=== PATIENT | male | born 1940 | race Caucasian/White ===

== ENCOUNTER 2017-10-21 12:25 | Inpatient (IN) | payer MEDICARE ==
[~2017-10-21] VITALS: Ht 177.8 cm; Wt 95.0 kg
[2017-10-21] VITALS (7 sets, daily range): BP systolic 126–156; BP diastolic 62–87; PULSE 58–106; RESP 16–20; TEMP 97.8–98.2; O2SAT 96–100
[2017-10-21] MEDS ORDERED: SIMV20TA PO (12:36)
[2017-10-21] MEDS ORDERED: METO1TAB43 PO (12:36)
[2017-10-21] MEDS ORDERED: TRAM50TA PO (12:36)
[2017-10-21] MEDS ORDERED: ASPI-183 PO (12:36)
[2017-10-21] MEDS ORDERED: SODIUM CHLORIDE 0.9% FLUSH 10 ML FLUSH IVF PRN (12:45)
--- NOTE | 2017-10-21 13:16 | RADRPT ---
EXAM DATE/TIME: 10/21/2017 12:59 [place] COMPARISON: No previous studies available for comparison. INDICATIONS : Chest pain for 3 days MEDICAL HISTORY : Cardiovascular disease. SURGICAL HISTORY : Pacemaker. ENCOUNTER: Initial ACUITY: 3 days PAIN SCORE: 10/10 LOCATION: Bilateral chest FINDINGS: A single view of the chest demonstrates the lungs to be symmetrically aerated without evidence of mas s, infiltrate or effusion. Dual-lead AICD device in place with battery pack obscuring a portion of th e left hemithorax. The cardiac silhouette is mildly enlarged. Osseous structures are intact. CONCLUSION: 1. Compensated cardiomegaly. 2. No acute cardiopulmonary disease. Keanu Song MD on October 21, 2017 at 13:13 Board Certified Radiologist. This report was verified electronically.
[2017-10-21 13:19] LABS: AUTOMATED NEUTROPHIL # 5.9 TH/MM3 (1.8-7.7); BASOPHIL % 0.2 % (0.0-2.0); EOSINOPHIL # 0.2 TH/MM3 (0-0.4); HEMATOCRIT 39.5 % (39.0-51.0); HEMOGLOBIN 13.9 GM/DL (13.0-17.0); LYMPH % 25.9 % (9.0-44.0); LYMPHOCYTE # 2.4 TH/MM3 (1.0-4.8); MEAN CELL VOLUME 90.3 FL (80.0-100.0); MEAN CORPUSCULAR HEMOGLOBIN 31.9 PG (27.0-34.0); MEAN CORPUSCULAR HGB CONC 35.3 % (32.0-36.0); MEAN PLATELET VOLUME 6.9 FL (7.0-11.0); MONO % 7.7 % (0.0-8.0); MONOCYTE # 0.7 TH/MM3 (0-0.9); NEUT % 64.2 % (16.0-70.0); PLATELET COUNT 195 TH/MM3 (150-450); RED BLOOD COUNT 4.37 MIL/MM3 (4.50-5.90); RED CELL DISTRIBUTION WIDTH 13.8 % (11.6-17.2); WHITE BLOOD COUNT 9.2 TH/MM3 (4.0-11.0)
[2017-10-21 13:35] LABS: BICARBONATE 28.9 MEQ/L (21.0-32.0); BLOOD UREA NITROGEN 20 MG/DL (7-18); CHLORIDE 106 MEQ/L (98-107); CREATININE 1.69 MG/DL (0.60-1.30); GLOMERULAR FILTRATION RATE 40 ML/MIN (>89); GLUCOSE,RANDOM 116 MG/DL (74-106); MAGNESIUM 2.4 MG/DL (1.5-2.5); SODIUM (NA) 141 MEQ/L (136-145)
[2017-10-21 13:38] LABS: TROPONIN I LESS THAN 0.02 NG/ML (0.02-0.05)
--- NOTE | 2017-10-21 14:02 | PD ---
HPI Chief Complaint: Cardiac Complaint Time Seen by Provider: 12:29 Travel History International Travel<30 days: No Contact w/Intl Traveler<30days: No Traveled to known affect area: No History of Present Illness HPI The patient is 77 years old and arrives by private auto due to arrhythmia. The patient additionally reports retrosternal chest pain of at least moderate severity associated with shortness of breath. He has a defibrillator. He reports a similar episode occurred a few weeks prior and after 5 hours a defibrillator started working. He is a [employer] device. He denies fever chills nausea vomiting diaphoresis and dizziness. He reports feeling his normal self lately with no new or different medication or illness. PFSH Past Medical History Atrial Fibrillation: Yes Cardiac Catheterization: Yes Cardiovascular Problems: Yes Past Surgical History AICD: Yes Cholecystectomy: Yes Coronary Stent: Yes Pacemaker: Yes Social History Alcohol Use: No Tobacco Use: No Substance Use: No Allergies-Medications (Allergen,Severity, Reaction): Coded Allergies: No Known Allergies (Unverified , 10/21/17) Reported Meds & Prescriptions Reported Meds & Active Scripts Active Reported Aspirin 325 Mg Tab 325 Mg PO Q6H Simvastatin 20 Mg Tab 20 Mg PO DAILY Tramadol (Tramadol HCl) 50 Mg Tab 50 Mg PO Q6H PRN Metoprolol Succinate ER 24 HR (Metoprolol Succinate) 100 Mg Tab 100 Mg PO DAILY Review of Systems Except as stated in HPI: all other systems reviewed are Neg General / Constitutional: No: Fever Physical Exam Narrative GENERAL: 77-year-old male mild distress Vital Signs Date Time Temp Pulse Resp B/P (MAP) Pulse Ox O2 Delivery O2 Flow Rate FiO2 10/21/17 13:43 58 16 138/87 (104) 99 Room Air 2.00 10/21/17 12:45 16 100 Room Air 10/21/17 12:45 100 Room Air 10/21/17 12:36 93 18 100 Nasal Cannula 2.00 10/21/17 12:31 95 20 98 Room Air 10/21/17 12:29 98.2 106 16 156/82 (106) 98 SKIN: Warm and dry. HEAD: Atraumatic. Normocephalic. EYES: Pupils equal and round. No scleral icterus. No injection or drainage. ENT: No nasal bleeding or discharge. Mucous membranes pink and moist. NECK: Trachea midline. No JVD. CARDIOVASCULAR: Irregular rhythm. The rate is about 90. RESPIRATORY: Lungs are clear bilaterally. Minimal tachypnea. GASTROINTESTINAL: Abdomen soft, non-tender, nondistended. Hepatic and splenic margins not palpable. MUSCULOSKELETAL: Extremities without clubbing, cyanosis, or edema. No obvious deformities. NEUROLOGICAL: Awake and alert. No obvious cranial nerve deficits. Motor grossly within normal limits. Five out of 5 muscle strength in the arms and legs. Normal speech. PSYCHIATRIC: Appropriate mood and affect; insight and judgment normal. Data Data Last Documented VS Vital Signs Date Time Temp Pulse Resp B/P (MAP) Pulse Ox O2 Delivery O2 Flow Rate FiO2 10/21/17 13:43 58 16 138/87 (104) 99 Room Air 2.00 10/21/17 12:29 98.2 Vital signs reviewed Orders Orders Electrocardiogram (10/21/17 12:41) Basic Metabolic Panel (Bmp) (10/21/17 12:41) B-Type Natriuretic Peptide (10/21/17 12:41) Ckmb (Isoenzyme) Profile (10/21/17 12:41) Complete Blood Count With Diff (10/21/17 12:41) Magnesium (Mg) (10/21/17 12:41) Prothrombin Time / Inr (Pt) (10/21/17 12:41) Act Partial Throm Time (Ptt) (10/21/17 12:41) Troponin I (10/21/17 12:41) Chest, Single Ap (10/21/17 12:41) Ecg Monitoring (10/21/17 12:41) Iv Access Insert/Monitor (10/21/17 12:41) Oximetry (10/21/17 12:41) Oxygen Administration (10/21/17 12:41) Sodium Chloride 0.9% Flush (Ns Flush) (10/21/17 12:45) Consult Cardiology (10/21/17 ) Admit Order (Ed Use Only) (10/21/17 ) Outsoles Channel Opener / Telemetry [id number].[id number] (10/21/17 15:29) Vital Signs (Adult) Q4H (10/21/17 15:29) Diet Heart Healthy (10/21/17 Dinner) Activity Bed Rest (10/21/17 15:29) Labs Laboratory Tests Test 10/21/17 12:40 White Blood Count 9.2 TH/MM3 Red Blood Count 4.37 MIL/MM3 Hemoglobin 13.9 GM/DL Hematocrit 39.5 % Mean Corpuscular Volume 90.3 FL Mean Corpuscular Hemoglobin 31.9 PG Mean Corpuscular Hemoglobin Concent 35.3 % Red Cell Distribution Width 13.8 % Platelet Count 195 TH/MM3 Mean Platelet Volume 6.9 FL Neutrophils (%) (Auto) 64.2 % Lymphocytes (%) (Auto) 25.9 % Monocytes (%) (Auto) 7.7 % Eosinophils (%) (Auto) 2.0 % Basophils (%) (Auto) 0.2 % Neutrophils # (Auto) 5.9 TH/MM3 Lymphocytes # (Auto) 2.4 TH/MM3 Monocytes # (Auto) 0.7 TH/MM3 Eosinophils # (Auto) 0.2 TH/MM3 Basophils # (Auto) 0.0 TH/MM3 CBC Comment DIFF FINAL Differential Comment Prothrombin Time 10.0 SEC Prothromb Time International Ratio 1.0 RATIO Activated Partial Thromboplast Time 26.1 SEC Blood Urea Nitrogen 20 MG/DL Creatinine 1.69 MG/DL Random Glucose 116 MG/DL Calcium Level 9.0 MG/DL Magnesium Level 2.4 MG/DL Sodium Level 141 MEQ/L Potassium Level 3.8 MEQ/L Chloride Level 106 MEQ/L Carbon Dioxide Level 28.9 MEQ/L Anion Gap 6 MEQ/L Estimat Glomerular Filtration Rate 40 ML/MIN Total Creatine Kinase 88 U/L Troponin I LESS THAN 0.02 NG/ML B-Type Natriuretic Peptide 220 PG/ML MDM Medical Decision Making Medical Screen Exam Complete: Yes Emergency Medical Condition: Yes Medical Record Reviewed: Yes Differential Diagnosis NSTEMI, unstable angina, coronary vasospasm, PE, PTX, aortic dissection, pericarditis, myocarditis, endocarditis, PNA, esophageal disease, aneurysm, musculoskeletal etiologies, anxiety, cocaine/sympathomimetic abuse Narrative Course CBC & BMP Diagram 10/21/17 12:40 Calcium Level 9.0, Magnesium Level 2.4 The BNP is 220 Troponins less than 0.02 EKG shows an irregular rhythm with which is an electronic ventricular pacemaker the rates approximately 96 The [employer] has been called and he will evaluate the patient The 3-lead biventricular pacing device with defibrillator was investigated. Evidently the function is normal. Multiple episodes of recurrent PVCs with antitachycardia pacing has been recorded over the past 2 months. CBC & BMP Diagram 10/21/17 12:40 Calcium Level 9.0, Magnesium Level 2.4 Last Impressions Chest X-Ray 10/21/17 1241 Signed Impressions: Service Date/Time: Saturday, October 21, 2017 12:59 - CONCLUSION: 1. Compensated cardiomegaly. 2. No acute cardiopulmonary disease. Keanu Song MD Patient has been resting comfortably in the ER here. He reports some subjective improvement since his arrival. The case was discussed with on-call cardiology Dr. Morgan. We will keep the patient here for ongoing monitoring and further evaluation. municipal clerk instructed to consult Dr. Morgan via the HUB at 254pm d/w Dr De Guzman Critical Care Narrative Aggregate critical care time was 40 minutes. Time to perform other separately billable procedures was not included in the critical care time. My time did not include minutes spent treating any other patients simultaneously or on activities that did not directly contribute to the patient's treatment. The services I provided to this patient were to treat and/or prevent clinically significant deterioration that could result in: Arrhythmia I provided critical care services requiring my management, as noted below: Chart data review, documentation time, medication orders and management, vital sign assessments/reviewing monitor data, ordering and reviewing lab tests, ordering and interpreting/reviewing x-rays and diagnostic studies, care of the patient and discussion of the patient with the admitting physicians. Diagnosis Primary Impression: Arrhythmia Qualified Codes: I49.9 - Cardiac arrhythmia, unspecified Additional Impression: Chest pain Qualified Codes: R07.9 - Chest pain, unspecified Admitting Information Admitting Physician Requests: Shade Jules MD Oct 21, 2017 14:02
--- NOTE | 2017-10-21 15:53 | HHI.HP ---
[facility] Service [facility] Primary Care Physician Non-Staff Admission Diagnosis Dysrhthmia; Chest Pain Diagnoses: Chief Complaint: Chest pain Travel History International Travel<30 Days: No Contact w/Intl Traveler <30 Da: No Traveled to Known Affected Are: No History of Present Illness 77-year-old male with a medical history significant for reported atrial fibrillation, cardiac arrhythmias status post multiple ablation and pacemaker placement. Patient reports he has had no ongoing issues with his heart rate for this past year. He also has been short of breath with exertion. This morning he had an acute episode of retrosternal pain with associated diaphoresis which prompted the emergency room visit. He denies feeling any palpitations or shock. The patient is in town for the [employer]. His cardiac rn is in [place]. He reports he had a normal heart catheterization last December. Most recently, he reported to Jerald is a physician that he has been getting short of breath with activity. He was told that maybe he had fluid and was started on Lasix. He has been taking the Lasix for the past 14 days but states he has not noticed any difference except for urinating a lot. He states that he is stopping this medication. Since arrival to the emergency room, he reports that the chest pain has resolved. Review of Systems Constitutional: COMPLAINS OF: Diaphoretic episodes, DENIES: Fever, Chills Respiratory: COMPLAINS OF: Shortness of breath Cardiovascular: COMPLAINS OF: Chest pain Gastrointestinal: DENIES: Abdominal pain, Nausea, Vomiting Genitourinary: DENIES: Dysuria Except as stated in HPI: all other systems reviewed are Neg Past Family Social History Past Medical History Atrial fibrillation status post multiple conversion and ablation History of pacemaker and defibrillator placement. Chronic back pain Peripheral neuropathy involving the feet Fluctuating renal functions Past Surgical History Back surgery, titanium rods Cholecystectomy Pacemaker/defibrillator placement Reported Medications Reported Meds & Active Scripts Active Reported Aspirin 325 Mg Tab 325 Mg PO Q6H Simvastatin 20 Mg Tab 20 Mg PO DAILY Tramadol (Tramadol HCl) 50 Mg Tab 50 Mg PO Q6H PRN Metoprolol Succinate ER 24 HR (Metoprolol Succinate) 100 Mg Tab 100 Mg PO DAILY Allergies: Coded Allergies: No Known Allergies (Unverified , 10/21/17) Family History Reviewed and is found to be noncontributory Social History Does not use tobacco, alcohol, or illicit drugs. Physical Exam Vital Signs Vital Signs Date Time Temp Pulse Resp B/P (MAP) Pulse Ox O2 Delivery O2 Flow Rate FiO2 10/21/17 13:43 58 16 138/87 (104) 99 Room Air 2.00 10/21/17 12:45 16 100 Room Air 10/21/17 12:45 100 Room Air 10/21/17 12:36 93 18 100 Nasal Cannula 2.00 10/21/17 12:31 95 20 98 Room Air 10/21/17 12:29 98.2 106 16 156/82 (106) 98 Physical Exam GENERAL: This is a well-nourished, well-developed patient, in no apparent distress. SKIN: No rashes, ecchymoses or lesions. Cool and dry. HEAD: Atraumatic. Normocephalic. No temporal or scalp tenderness. EYES: Pupils equal round and reactive. Extraocular motions intact. No scleral icterus. No injection or drainage. ENT: Nose without bleeding, purulent drainage or septal hematoma. Throat without erythema, tonsillar hypertrophy or exudate. Uvula midline. Airway patent. NECK: Trachea midline. No JVD or lymphadenopathy. Supple, nontender, no meningeal signs. CARDIOVASCULAR: Regular rate and rhythm without murmurs, gallops, or rubs. RESPIRATORY: Clear to auscultation. Breath sounds equal bilaterally. No wheezes , rales, or rhonchi. GASTROINTESTINAL: Abdomen soft, non-tender, nondistended. No hepato-splenomegaly , or palpable masses. No guarding. MUSCULOSKELETAL: Extremities without clubbing, cyanosis, or edema. No joint tenderness, effusion, or edema noted. No calf tenderness. Negative Homans sign bilaterally. NEUROLOGICAL: Awake and alert. Cranial nerves II through XII intact. Motor and sensory grossly within normal limits. Five out of 5 muscle strength in all muscle groups. Normal speech. Laboratory Laboratory Tests Test 10/21/17 12:40 White Blood Count 9.2 Red Blood Count 4.37 Hemoglobin 13.9 Hematocrit 39.5 Mean Corpuscular Volume 90.3 Mean Corpuscular Hemoglobin 31.9 Mean Corpuscular Hemoglobin Concent 35.3 Red Cell Distribution Width 13.8 Platelet Count 195 Mean Platelet Volume 6.9 Neutrophils (%) (Auto) 64.2 Lymphocytes (%) (Auto) 25.9 Monocytes (%) (Auto) 7.7 Eosinophils (%) (Auto) 2.0 Basophils (%) (Auto) 0.2 Neutrophils # (Auto) 5.9 Lymphocytes # (Auto) 2.4 Monocytes # (Auto) 0.7 Eosinophils # (Auto) 0.2 Basophils # (Auto) 0.0 CBC Comment DIFF FINAL Differential Comment Prothrombin Time 10.0 Prothromb Time International Ratio 1.0 Activated Partial Thromboplast Time 26.1 Blood Urea Nitrogen 20 Creatinine 1.69 Random Glucose 116 Calcium Level 9.0 Magnesium Level 2.4 Sodium Level 141 Potassium Level 3.8 Chloride Level 106 Carbon Dioxide Level 28.9 Anion Gap 6 Estimat Glomerular Filtration Rate 40 Total Creatine Kinase 88 Troponin I LESS THAN 0.02 B-Type Natriuretic Peptide 220 Result Diagram: 10/21/17 1240 10/21/17 1240 Imaging Last Impressions Chest X-Ray 10/21/17 1241 Signed Impressions: Service Date/Time: Saturday, October 21, 2017 12:59 - CONCLUSION: 1. Compensated cardiomegaly. 2. No acute cardiopulmonary disease. MD Soco Smith VTE Risk Assessment Soco VTE Risk Assessment: Mod/High Risk (score >= 2) VTE Pharm Contraindication: Patient refusal Diani Risk Assessment Model Point Value = 1 Point Value = 2 Point Value = 3 Point Value = 5 Age 41-60 Minor surgery BMI > 25 kg/m2 Swollen legs Varicose veins or History of unexplained or recurrent spontaneous Oral contraceptives or hormone replacement Sepsis (< 1 month) Serious lung disease, including pneumonia (< 1 month) Abnormal pulmonary function Acute myocardial infarction Congestive heart failure (< 1 month) History of inflammatory bowel disease Medical patient at bed rest Age 61-74 Arthroscopic surgery Major open surgery (> 45 min) Laparoscopic surgery (> 45 min) Malignancy Confined to bed (> 72 hours) Immobilizing plaster cast Central venous access Age >= 75 History of VTE Family history of VTE Factor V Leiden Prothrombin [id number] Lupus anticoagulant Anticardiolipin antibodies Elevated serum homocysteine Heparin-induced thrombocytopenia Other congenital or acquired thrombophilia Stroke (< 1 month) Elective arthroplasty Hip, pelvis, or leg fracture Acute spinal cord injury (< 1 month) Prophylaxis Regimen Total Risk Factor Score Risk Level Prophylaxis Regimen 0-1 Low Early ambulation 2 Moderate Order ONE of the following: *Sequential Compression Device (SCD) *Heparin 5000 units SQ BID 3-4 Higher Order ONE of the following medications: *Heparin 5000 units SQ TID *Enoxaparin/Lovenox 40 mg SQ daily (WT < 150 kg, CrCl > 30 mL/min) *Enoxaparin/Lovenox 30 mg SQ daily (WT < 150 kg, CrCl > 10-29 mL/min) *Enoxaparin/Lovenox 30 mg SQ BID (WT < 150 kg, CrCl > 30 mL/min) AND/OR *Sequential Compression Device (SCD) 5 or more Highest Order ONE of the following medications: *Heparin 5000 units SQ TID (Preferred with Epidurals) *Enoxaparin/Lovenox 40 mg SQ daily (WT < 150 kg, CrCl > 30 mL/min) *Enoxaparin/Lovenox 30 mg SQ daily (WT < 150 kg, CrCl > 10-29 mL/min) *Enoxaparin/Lovenox 30 mg SQ BID (WT < 150 kg, CrCl > 30 mL/min) AND *Sequential Compression Device (SCD) Assessment and Plan Problem List: (1) Chest pain ICD Code: R07.9 - Chest pain, unspecified Status: Acute Plan: Currently chest pain free. Pacing on the monitor. Cardiology consulted. Appreciate input. Patient took Aspirin 325 mg today Continue Metoprolol, Statin, and Aspirin Serial cardiac enzymes (2) Arrhythmia ICD Code: I49.9 - Cardiac arrhythmia, unspecified Status: Acute Plan: Pacemaker interrogated. Episodes of tachycardia and recurrent PVCs. Further plans per Cardiology Continue to monitor on telemetry (3) Peripheral neuropathy ICD Code: G62.9 - Polyneuropathy, unspecified Plan: Patient reports he takes Tramadol as needed. Trial of Gabapentin. (4) CKD (chronic kidney disease) ICD Code: N18.9 - Chronic kidney disease, unspecified Plan: Patient reports his kidney functions fluctuates. Continue to monitor Avoid nephrotoxins (5) Atrial fibrillation ICD Code: I48.91 - Unspecified atrial fibrillation Plan: On Metoprolol. Patient reports he has tried all types of anticoagulant and he could not tolerate them. He will only take Aspirin. Continue. Discussed Condition With Patient and his . Dr. White. Problem Qualifiers (1) Chest pain: Qualified Codes: R07.9 - Chest pain, unspecified (2) Arrhythmia: Qualified Codes: I49.9 - Cardiac arrhythmia, unspecified Kobe De Guzman MD Oct 21, 2017 15:52
[2017-10-21] MEDS ORDERED: SODIUM CHLORIDE 0.9% FLUSH 10 ML FLUSH IV FLUSH PRN (16:00)
[2017-10-21] MEDS ORDERED: traMADol HCL 50 MG TAB PO PRN (16:00)
[2017-10-21] MEDS ORDERED: ACETAMINOPHEN 500 MG CPLT PO PRN (16:00)
[2017-10-21] MEDS: ASPIRIN 325 MG TAB PO SCH ×2 (16:13→22:15)
[2017-10-21] MEDS: GABAPENTIN 100 MG CAP PO SCH (18:33)
--- NOTE | 2017-10-21 19:14 | MB ---
cc: EFE RAM M.D. DATE OF CONSULTATION: 10/21/2017. HISTORY OF PRESENT ILLNESS: Jerzy is a very pleasant 77-year-old gentleman visiting here from [place] for [employer]. He presented to the emergency room with severe chest pain and also some shortness of breath. He is status post an ICD. He states he had a catheterization in December of 2016 in [place] and he was told he had no significant coronary artery disease. He first notified his acetylene torch burner in [place] in August that he was having severe chest pain. There was a discussion on doing a catheterization but it was never done. The patient is currently eating dinner in the emergency room and is in no acute distress. He otherwise denies any fevers, chills, cough, GI or bleeding, paroxysmal nocturnal dyspnea, orthopnea, syncope or dizziness. In the emergency room, it was noted that he came to the emergency room due to "arrhythmia". PAST MEDICAL HISTORY: His past medical history is per the history of present illness. 1. Atrial fibrillation. 2. Cholecystectomy. 3. ICD placement. 4. History of coronary stent placement. 5. Fluctuating renal function. 6. Peripheral neuropathy. 7. Chronic back pain. SOCIAL HISTORY: Denies tobacco or alcohol use. ALLERGIES: NONE. MEDICATIONS PRIOR TO ADMISSION: 1. Aspirin 325 milligrams q. 6 hours. 2. Simvastatin 20 milligrams daily. 3. Tramadol. 4. Toprol ER 100 milligrams daily. MEDICATIONS IN THE HOSPITAL: 1. Metoprolol XL 100 daily. 2. Pravastatin 40 daily. 3. Aspirin 325 q. 6 hours. PHYSICAL EXAMINATION: VITAL SIGNS: Blood pressure 128/68, pulse 60, temperature 98.2, respiratory rate 20. Saturations 96% on two liters nasal cannula. GENERAL: He is alert and oriented times three and in no acute distress. NECK: The neck is supple. No jugular venous distention. No bruits. CARDIOVASCULAR EXAM: S1 and S2. No murmurs, rubs or gallops. LUNGS: Clear to auscultation bilaterally. ABDOMEN: The abdomen is soft, nontender and nondistended with positive bowel sounds. EXTREMITIES: No lower extremity edema. RADIOLOGICAL STUDIES: Chest x-ray shows compensated cardiomegaly. No acute cardiopulmonary disease. EKGS: His EKG shows atrial fibrillation with demand ventricular pacing and occasional wide complex beats, either representing PVCs and/or PACs. LABORATORY DATA: White count 9.2, hemoglobin 13.9, hematocrit 39.5, platelet count 195,000. Sodium 141, potassium 3.8, chloride 106, bicarbonate 28.9, BUN 20, creatinine 1.69. Troponin is less than 0.02. CK is 88. Magnesium is 2.4. Calcium is 9.0. BNP is 220. TSH is 8.61. INR is 1.0. DIAGNOSES: He has the following diagnoses: 1. Unstable angina. 2. [place] Cardiovascular Society class IV angina. 3. Coronary artery disease. 4. Atrial fibrillation. 5. Chronic renal insufficiency. 6. Status post ICD. 7. Atrial fibrillation. 8. Permanent pacemaker. DISCUSSION: As the patient is having crescendo chest pain which is now severe with a history of coronary artery disease and stent placement and a history of what sounds like a cardiomyopathy requiring an ICD, I do think left heart catheterization is medically necessary. I also think right heart catheterization is medically necessary as well given the patient's decompensated congestive heart failure with elevated BNP. Agree with aspirin, metoprolol and pravastatin. The patient adamantly refuses Coumadin and/or novel oral anticoagulant agent as he states he has had altered mental status with these medications in the past. I have informed him that they are clearly recommended and I have advised him to take them given his [id number] score of 4. Again, he clearly declines taking them. Plan for left and right heart catheterization 10/22/17. Efe Ram MD Lori/JCC /6:29 PM /6:58 PM
[2017-10-21 19:32] LABS: TROPONIN I LESS THAN 0.02 NG/ML (0.02-0.05)
[2017-10-21] MEDS: SODIUM CHLORIDE 0.9% FLUSH 10 ML FLUSH IV FLUSH SCH (22:15)
[2017-10-22] VITALS (8 sets, daily range): BP systolic 100–156; BP diastolic 60–87; PULSE 60–91; RESP 18–20; TEMP 97.9–98.1; O2SAT 98–99
[2017-10-22] MEDS: ASPIRIN 325 MG TAB PO SCH ×3 (05:11→16:00)
[2017-10-22] MEDS: GABAPENTIN 100 MG CAP PO SCH (08:40)
[2017-10-22] MEDS: SODIUM CHLORIDE 0.9% FLUSH 10 ML FLUSH IV FLUSH SCH (08:40)
[2017-10-22] MEDS ORDERED: METOPROLOL SUCCINATE 50 MG EXTENDED RELEASE TAB PO SCH (09:00)
[2017-10-22] MEDS ORDERED: PRAVASTATIN SOD 40 MG TAB PO SCH ×2 (09:00→21:00)
--- NOTE | 2017-10-22 10:35 | HHI.PR ---
Subjective Remarks Patient seen this morning at 9:30 AM. Says he is feeling right. Denies any chest pain shortness of breath. Denies nausea or vomiting. Objective Vital Signs Date Time Temp Pulse Resp B/P (MAP) Pulse Ox O2 Delivery O2 Flow Rate FiO2 10/22/17 07:50 97.9 68 20 100/60 (73) 98 10/22/17 07:32 63 10/22/17 04:37 98.0 60 18 130/75 (93) 99 10/22/17 01:00 97.9 61 18 146/75 (98) 99 10/21/17 20:09 98.1 59 17 126/62 (83) 97 10/21/17 17:55 98.2 60 20 128/68 (88) 96 10/21/17 16:13 97.8 58 16 155/76 (102) 98 2.00 10/21/17 13:43 58 16 138/87 (104) 99 Room Air 2.00 10/21/17 12:45 16 100 Room Air 10/21/17 12:45 100 Room Air 10/21/17 12:36 93 18 100 Nasal Cannula 2.00 10/21/17 12:31 95 20 98 Room Air 10/21/17 12:29 98.2 106 16 156/82 (106) 98 Result Diagram: 10/21/17 1240 10/21/17 1240 Objective Remarks GENERAL: Patient sitting up in bed. Appears comfortable. SKIN: Warm and dry. HEAD: Normocephalic. EYES: No scleral icterus. No injection or drainage. NECK: Supple, trachea midline. No JVD. CARDIOVASCULAR: Regular rate and rhythm without murmurs, gallops, or rubs. RESPIRATORY: Breath sounds equal bilaterally. No accessory muscle use. GASTROINTESTINAL: Abdomen soft, non-tender, nondistended. MUSCULOSKELETAL: No cyanosis, or edema. BACK: Nontender without obvious deformity. No CVA tenderness. A/P Assessment and Plan // Chest pain Plan: Currently chest pain free. Pacing on the monitor. Cardiology consulted. Appreciate input. Patient took Aspirin 325 mg today Continue Metoprolol, Statin, and Aspirin Serial cardiac enzymes = Cardiology following. Cardiac catheterization this a.m. Appreciate assistance. // Arrhythmia Plan: Pacemaker interrogated. Episodes of tachycardia and recurrent PVCs. Further plans per Cardiology Continue to monitor on telemetry // Peripheral neuropathy Plan: Patient reports he takes Tramadol as needed. Trial of Gabapentin. = Patient refused gabapentin. Will stop. //CKD (chronic kidney disease) Plan: Patient reports his kidney functions fluctuates. Continue to monitor Avoid nephrotoxins = awaiting a.m. labs. //Atrial fibrillation Plan: On Metoprolol. Patient reports he has tried all types of anticoagulant and he could not tolerate them. He will only take Aspirin. Continue. = Patient refuses full anticoagulation. Management as per cardiology. Appreciate assistance. Discharge Planning Pending cardiac catheterization and cardiology clearance Yon Vega MD Oct 22, 2017 10:35
--- NOTE | 2017-10-22 11:04 | PD.CARD.PN ---
Subjective Subjective Remarks alert in nad, assymptomatic Objective Medications Current Medications Medications (Trade) Dose Ordered Sig/Rose Route Start Time Stop Time Status Last Admin (Aspirin) 325 mg Q6H PO 10/21/17 16:00 10/22/17 05:11 (Toprol Xl) 100 mg DAILY PO 10/22/17 09:00 10/22/17 08:39 (Ultram) 50 mg Q6H PRN PO 10/21/17 16:00 (NS Flush) 2 ml BID IV FLUSH 10/21/17 21:00 10/22/17 08:40 (NS Flush) 2 ml UNSCH PRN IV FLUSH 10/21/17 16:00 (Tylenol) 500 mg Q4H PRN PO 10/21/17 16:00 (Pravachol) 40 mg HS PO 10/22/17 21:00 Vital Signs / I&O Vital Signs Date Time Temp Pulse Resp B/P (MAP) Pulse Ox O2 Delivery O2 Flow Rate FiO2 10/22/17 07:50 97.9 68 20 100/60 (73) 98 10/22/17 07:32 63 10/22/17 04:37 98.0 60 18 130/75 (93) 99 10/22/17 01:00 97.9 61 18 146/75 (98) 99 10/21/17 20:09 98.1 59 17 126/62 (83) 97 10/21/17 17:55 98.2 60 20 128/68 (88) 96 10/21/17 16:13 97.8 58 16 155/76 (102) 98 2.00 10/21/17 13:43 58 16 138/87 (104) 99 Room Air 2.00 10/21/17 12:45 16 100 Room Air 10/21/17 12:45 100 Room Air 10/21/17 12:36 93 18 100 Nasal Cannula 2.00 10/21/17 12:31 95 20 98 Room Air 10/21/17 12:29 98.2 106 16 156/82 (106) 98 Physical Exam GENERAL: SKIN: Warm and dry. HEAD: Normocephalic. EYES: No scleral icterus. No injection or drainage. NECK: Supple, trachea midline. No JVD or lymphadenopathy. CARDIOVASCULAR: Regular rate and rhythm without murmurs, gallops, or rubs. RESPIRATORY: Breath sounds equal bilaterally. No accessory muscle use. GASTROINTESTINAL: Abdomen soft, non-tender, nondistended. MUSCULOSKELETAL: No cyanosis, or edema. BACK: Nontender without obvious deformity. No CVA tenderness. Laboratory Laboratory Tests Test 10/21/17 12:40 10/21/17 18:40 10/22/17 00:45 White Blood Count 9.2 TH/MM3 Red Blood Count 4.37 MIL/MM3 Hemoglobin 13.9 GM/DL Hematocrit 39.5 % Mean Corpuscular Volume 90.3 FL Mean Corpuscular Hemoglobin 31.9 PG Mean Corpuscular Hemoglobin Concent 35.3 % Red Cell Distribution Width 13.8 % Platelet Count 195 TH/MM3 Mean Platelet Volume 6.9 FL Neutrophils (%) (Auto) 64.2 % Lymphocytes (%) (Auto) 25.9 % Monocytes (%) (Auto) 7.7 % Eosinophils (%) (Auto) 2.0 % Basophils (%) (Auto) 0.2 % Neutrophils # (Auto) 5.9 TH/MM3 Lymphocytes # (Auto) 2.4 TH/MM3 Monocytes # (Auto) 0.7 TH/MM3 Eosinophils # (Auto) 0.2 TH/MM3 Basophils # (Auto) 0.0 TH/MM3 CBC Comment DIFF FINAL Differential Comment Prothrombin Time 10.0 SEC Prothromb Time International Ratio 1.0 RATIO Activated Partial Thromboplast Time 26.1 SEC Blood Urea Nitrogen 20 MG/DL Creatinine 1.69 MG/DL Random Glucose 116 MG/DL Calcium Level 9.0 MG/DL Magnesium Level 2.4 MG/DL Sodium Level 141 MEQ/L Potassium Level 3.8 MEQ/L Chloride Level 106 MEQ/L Carbon Dioxide Level 28.9 MEQ/L Anion Gap 6 MEQ/L Estimat Glomerular Filtration Rate 40 ML/MIN Total Creatine Kinase 88 U/L 72 U/L Troponin I LESS THAN 0.02 NG/ML LESS THAN 0.02 NG/ML LESS THAN 0.02 NG/ML B-Type Natriuretic Peptide 220 PG/ML Thyroid Stimulating Hormone 3rd Gen 0.861 uIU/ML Imaging Last 24 hours Impressions Chest X-Ray 10/21/17 1241 Signed Impressions: Service Date/Time: Saturday, October 21, 2017 12:59 - CONCLUSION: 1. Compensated cardiomegaly. 2. No acute cardiopulmonary disease. Keanu Song MD Assessment and Plan Problem List: (1) Arrhythmia ICD Codes: I49.9 - Cardiac arrhythmia, unspecified Status: Acute (2) CKD (chronic kidney disease) ICD Codes: N18.9 - Chronic kidney disease, unspecified Assessment and Plan 1.) arrythmia - assymptomatic, f/u 2d echo Problem Qualifiers (1) Arrhythmia: Qualified Codes: I49.9 - Cardiac arrhythmia, unspecified Efe Morgan MD Oct 22, 2017 11:04
[2017-10-22] MEDS ORDERED: HEPARIN-NS/PF FLUSH BAG 2,000 ML IV FLUSH ONE (11:58)
[2017-10-22 12:07] LABS: BICARBONATE 27.7 MEQ/L (21.0-32.0); CALCIUM 8.6 MG/DL (8.5-10.1); CREATININE 1.5 MG/DL (0.60-1.30)
[2017-10-22] MEDS ORDERED: MIDAZOLAM HCL 2 MG/2 ML VIAL ONE (12:32)
--- NOTE | 2017-10-22 13:39 | CATHPROC ---
[employer] HIS Report Study Information Study Number Admission Scheduled Start Study Start [id number] Oct 21 2017 3:30PM 10/22/2017 Oct 22 2017 11:57AM [place] Service Cardiac Catheterization Admit Source Facility Department Emergency department [facility] - Career Development Coordinator/Teacher Physician and Clinical Staff Initial Efe Campos Obstetrics TechnicianCherry Joseph,BIPIN Obstetrics TechnicianAisha Reyes,BIPIN Recorder Rebecca Hernandez,ROSS CARRIER DRIVER TECH2 Scrub Hilaria Recio,RT(R) (BS) Procedures Performed Procedure Location (Site) Vessel Name Coronary Angiograms LCA Left Coronary Coronary Angiograms RCA Right Coronary L Heart Cath LV Gram-hand inj. LV LV Ventricle Equipment Time Hospital Product Specialist Description Size Mfg Part Number Used/Scraped CATHETER, FR5 SWAN KERVIN 13:03 [email or web address] FR 5 [id number] *[id number] Used MONITOR TRANSDUCER, TRNovoDynamicsAVE [id number] 13:03 [employer] POOLE * Used W/STOCKCOCK *[id number] [id number] *[id number] [id number] *[id number] 13:03 [employer] INDUSTRIES PACK, CCL CUSTOM * Used *[id number] 13:03 [employer] PACER PEN, SKIN DUAL W/ RULER * Used *[id number] 13:03 [employer] MEDICAL SHEATH, FR5.5 PRELUDE 11CM FR 5.5 Used 038ACT# [id number] 13:03 [employer] MEDICAL WIRE, 3MMJ .035 180CM 180CM Used *[id number] 13:03 NAMIC MANIFOLD, 4 PORT * Used *[id number] 13:03 [employer] OMNIPAQUE, 350 MG, 150ML 150ML [id number] Used [id number] 13:03 [employer] MEDICAL BLANKET,WARM AIR CCL * Used *[id number] 13:03 [email or web address] MEDICAL SHEATH, FR4 TERUMO (10CM) FR 4 Used *[id number] History: Allergies Allergy Reaction No Known Allergies History: Risk Factors Family History of Hypertension Dyslipidemia Previous [place] Previous Heart Failure Premature CAD No No No No No Prior Valve Prior PCI Prior CABG Surgery No No No Cerebrovascular Peripheral Artery Chronic Lung On Dialysis Diabetes Disease Disease Disease No No No No No Labs Hgb (g/dl) Hct (%) WBC (l/cumm) Platelets (thousands) 11.60-17.00 35.00-51.00 4.00-11.00 150.00-450.00 13.9 39.5 9.2 195 Glucose (mg/dl) BUN (mg/dl) Creatinine (mg/dl) BUN:Creatinine (1:x) 74.00-106.00 7.00-18.00 0.50-1.30 10.00-20.00 116 26 1.7 15.3 Na (meq/l) K (meq/l) 136.00-145.00 3.50-5.10 141 3.8 INR (PTT:PT) 0.90-1.10 1 Troponin I (ng/ml) 0.02-0.05 0.02 Medication Medication Total Dose (Bolus/Oral) Medication Total Dosage/Unit 1% XYLOCAINE 10 mL FENTANYL 25 mcg VERSED 1 mg Medications (Bolus/Oral) Medication Time Given Dosage/Unit Administered By Reason 1% XYLOCAINE 10/22/2017 1:00:32 PM 10 mL Efe Morgan 10 mL 1% XYLOCAINE given in lab by Efe Morgan in Right Groin via Subcutaneous. Ordered by Efe Valderrama. VERSED 10/22/2017 1:01:11 PM 1 mg Cherry Mclain 1 mg VERSED given in lab by Cherry Mclain RN in Right Antecubital via Peripheral IV. Ordered by Efe Hendricks. FENTANYL 10/22/2017 1:01:55 PM 25 mcg Cherry Mclain 25 mcg FENTANYL given in lab by Cherry Mclain, BIPIN in Right Antecubital via Peripheral IV. Ordered b y Efe Morgan. Medication (Drip) Medication Time Given Dosage/Unit Concentration/Unit Diluent (ml) Solution IV Solutions 10/22/2017 12:25:30 PM 0 mL (IV) 500 NaCl .9 IV Solutions given in lab by Cherry Mclain RN in Right Antecubital via Peripheral IV. Pump/Drip Fl ow = 20 ml/hr using NaCl .9. Ordered by Efe Morgan. Initial Case Assessment Cardiovascular HR NIBP Chest Pain 83 168/94 0 Edema Present Skin color Skin None Normal Warm Dry Circulatory - Right Pulses Dorsalis Pedis Femoral 2 2 Scale (0,1,2,3,4,d) Circulatory - Left Pulses Dorsalis Pedis Femoral 2 2 Scale (0,1,2,3,4,d) Neurological State Oriented to time-place- Alert Moves all extremities person Respiration - General Respiration Rate SpO2 (%) (B/min) 15 99 Final Case Assessment Cardiovascular HR NIBP Chest Pain 63 161/80 0 Edema Present Skin color Skin None Normal Warm Dry Circulatory - Right Pulses Dorsalis Pedis Femoral 2 2 Scale (0,1,2,3,4,d) Circulatory - Left Pulses Dorsalis Pedis Femoral 2 2 Scale (0,1,2,3,4,d) Neurological State Oriented to time-place- Alert Moves all extremities person Respiration - General Respiration Rate SpO2 (%) (B/min) 15 97 Chronological Log Time Study Chronological Log 12:25:12 Patient arrived via Bed. 12:25:13 Patient Name, D.O.B, / Armband Verified By R.N. 12:25:14 Consent signed by the physician and the patient and verified by the Career Development Coordinator/Teacher staff. 12:25:14 Pre-op and post- op instructions given; patient acknowledges understanding of instructions. Verbal Stimulation=~VERBAL~ Physical Stimulation=~PHYSICAL~ Airway=~AIRWAY~ Respiration=~RESPIR ATION~ 12:25:15 TOTAL=~TOTAL~. (0=absent, 1=limited, 2=present) 12:25:23 Patient has been NPO for More than 6Hrs. 12:25:24 Skin Breakdown- 12:25:26 Patient Warmer Placed on the Table. 12:25:28 Marv Prominences Protected 12:25:29 A # 20 IV was noted in the Antecubital (right). Grade = 0 IV Solutions given in lab by Cherry Mclain, RN in Right Antecubital via Peripheral IV. Pump/D rip Flow = 20 ml/hr 12:25:30 using NaCl .9. Ordered by Efe Morgan. 12:25:30 History and physical on the chart or being dictated. 12:36:18 Reference ECG taken 12:36:42 HR=83 bpm, KZKK=681/94 mmhg, SpO2=99.0 %, Resp=15 B/min, Pain=0, Dewey=10, Chapman=2 Assessment: Initial Case, HR=83 BPM, AKKW=618/94 mmhg, Chest Pain=0, Edema=None, Color=Normal, Skin = Warm, Dry Right Pulses: Anshu Ped=2, Femoral=2 12:36:45 Left Pulses: Anshu Ped=2, Femoral=2 Neurological: State=Alert, Ox3, RIVERA Respiration: Resp=15 B/min, SpO2=99 % 12:37:07 Bilateral groins prepped with 2% chlorhexidine, and draped after a 3 minute waiting time. 12:40:40 Pressure channel 1 zeroed. 12:41:15 HR=98 bpm, HFJI=462/101 mmhg, SpO2=99.0 %, Resp=13 B/min, Pain=0, Dewey=10, Chapman=2 12:46:12 HR=46 bpm, GEMH=215/77 mmhg, SpO2=99.0 %, Resp=15 B/min, Pain=0, Dewey=10, Chapman=2 12:51:13 HR=55 bpm, ZSNT=623/83 mmhg, SpO2=98.0 %, Pain=0, Dewey=10, Chapman=2 12:56:40 HR=56 bpm, UBUY=033/89 mmhg, SpO2=97.0 %, Resp=15 B/min, Pain=0, Dewey=10, Chapman=2 Time Out. Correct patient, correct procedure, correct physician, power injector not loaded with contrast with surgical 12:59:52 team present. Time Out Concurred by MD and individual staff in procedure. 13:00:05 Case Start 13:00:13 Contrast Scanned 10 mL 1% XYLOCAINE given in lab by Efe Morgan in Right Groin via Subcutaneous. Ordered by Cathy, 13:00:32 Efe. 13:01:11 1 mg VERSED given in lab by Cherry Mclain, BIPIN in Right Antecubital via Peripheral IV. Ord ered by Efe Morgan. 13:01:15 HR=80 bpm, IMGX=181/88 mmhg, SpO2=99.0 %, Resp=14 B/min, Pain=0, Dewey=10, Chapman=2 25 mcg FENTANYL given in lab by Cherry Mclain, RN in Right Antecubital via Peripheral IV. Ord ered by Cathy, 13:01:55 Efe. A SHEATH, FR5.5 PRELUDE 11CM FR 5.5 was advanced into the Fem Vein (right) using the Modified S eldinger 13:02:16 technique. 13:03:27 Access site was Right Femoral Artery. 13:03:35 A SHEATH, FR4 TERUMO (10CM) FR 4 was advanced into the Fem Art (right) using the Modified S darriandingrobin technique. 13:06:12 HR=37 bpm, VJJD=284/99 mmhg, SpO2=98.0 %, Resp=16 B/min, Pain=0, Dewey=10, Chapman=2 13:06:19 A catheter was inserted via Fem Vein (right) 13:07:04 Saturation: Site=FA (Femoral Artery) , O2=98 %, Hgb=13.9 gm/dl, Condition=Condition 1. Used in calculation. Recorded Pressure: PCW, HR=51, Condition=Condition 1 13:07:45 (Pulmonary Capillary Wedge) PCW Recorded Pressure: MPA, HR=50, Condition=Condition 1 13:07:59 (Main Pulmonary Artery) MPA 30/06/18 Recorded Pressure: RV, HR=67, Condition=Condition 1 13:09:02 (Right Ventricle) RV Recorded Pressure: RA, HR=41, Condition=Condition 1 13:09:13 (Right Atrium) RA 13:09:49 Saturation: Site=PA (Pulmonary Artery) , O2=77 %, Hgb=13.9 gm/dl, Condition=Condition 1. Us ed in calculation. 13:10:02 [place] Kervin Catheter Removed 13:10:29 Saturation: Site=RA (Right Atrium) , O2=76.2 %, Hgb=13.9 gm/dl, Condition=Condition 1. Used in calculation. A JR 4.0 INFINITI CATHETER FR 4 was advanced over a wire. OMNIPAQUE, 350 MG, 150ML 150ML was us ed for 13:10:59 injections. 13:11:13 HR=61 bpm, JOJO=003/91 mmhg, SpO2=98.0 %, Resp=21 B/min, Pain=0, Dewey=10, Chapman=2 Recorded Pressure: LV, HR=56, Condition=Condition 1 13:11:30 (Left Ventricle) LV 143/6/14 13:11:38 The LV was manually injected with ~CCS~ cc's and visualized. contrast used. Recorded Pressure: LV, Ao, HR=56, Condition=Condition 1 13:11:51 (Left Ventricle) LV 131/3/18, (Aorta) Ao 151/72/105 13:14:13 The RCA was injected and visualized at various angles. OMNIPAQUE, 350 MG, 150ML 150ML used . 13:14:21 Catheter was removed A JL 5.0 INFINITI CATHETER FR 4 was advanced over a wire. OMNIPAQUE, 350 MG, 150ML 150ML was u sed for 13:14:22 injections. 13:14:29 The LCA was injected and visualized at various angles. OMNIPAQUE, 350 MG, 150ML 150ML use d. Recorded Pressure: Ao, HR=39, Condition=Condition 1 13:14:53 (Aorta) Ao 147/71/103 13:16:14 HR=66 bpm, VCVV=870/84 mmhg, SpO2=99.0 %, Resp=18 B/min, Pain=0, Dewey=10, Chapman=2 13:17:03 Catheter was removed 13:17:05 Case End 13:20:16 Sheath removed; pressure applied to access site. ARTERIAL 13:21:44 HR=54 bpm, GFHZ=060/73 mmhg, SpO2=97.0 %, Resp=17 B/min, Pain=0, Dewey=10, Chapman=2 13:24:14 Catheter(s) removed without difficulty 13:26:14 HR=65 bpm, YVRT=447/81 mmhg, SpO2=97.0 %, Resp=15 B/min, Pain=0, Dewey=10, Chapman=2 13:31:15 HR=63 bpm, FESK=456/81 mmhg, SpO2=97.0 %, Resp=14 B/min, Pain=0, Dewey=10, Chapman=2 13:31:52 Sheath removed; pressure applied to access site. VEIN 13:36:14 HR=63 bpm, DDDI=498/80 mmhg, SpO2=97.0 %, Resp=15 B/min, Pain=0, Dewey=10, Chapman=2 13:38:04 Vitals capture stopped. Assessment: Final Case, HR=63 BPM, JPMZ=617/80 mmhg, Chest Pain=0, Edema=None, Color=Normal, S kin = Warm, Dry Right Pulses: Anshu Ped=2, Femoral=2 13:38:08 Left Pulses: Anshu Ped=2, Femoral=2 Neurological: State=Alert, Ox3, RIVERA Respiration: Resp=15 B/min, SpO2=97 % 13:38:45 No case complications noted. 13:38:46 Sterile dressing applied to site 13:38:51 Bedside Report will be given. 13:38:54 A Left Heart Cath was performed. 13:38:56 Patient moved to [facility] End Study - Contrast Media Used In Study Contrast Total Opened (mL) Total Used (mL) Total Wasted (mL) Omnipaque 40 40 0 End Study - Maximum Contrast Load Max Contrast Load (mL) 279.4 End Study - Radiation Exposure Fluoro Time (minutes) 4.1 End Study - Sheaths Sheaths Pulled By Sheath Hold Time (min) Hilaria Recio 20 End Study - Patient Disposition Complications Transferred To Interventional Outcome No Telemetry Bed successful
[2017-10-22] MEDS ORDERED: MISC INFORMATION XX ONE (14:15)
[2017-10-22] MEDS ORDERED: SODIUM CHLORIDE 0.9% FLUSH 10 ML FLUSH IV FLUSH PRN (14:15)
[2017-10-22] MEDS ORDERED: IOHEXOL 350 MG/ML 50 ML BTL (for Cath Lab) OTHER ONE (18:04)
[2017-10-22] MEDS ORDERED: SODIUM CHLORIDE 0.9% FLUSH 10 ML FLUSH IV FLUSH SCH (21:00)
--- NOTE | 2017-10-23 11:00 | MA ---
cc: OBDULIA RAM M.D. DATE: 10/22/2017 PROCEDURE PERFORMED Right heart catheterization, left heart catheterization, left ventriculography, coronary angiography. INDICATION Unstable angina, cardiomyopathy, congestive heart failure, severe resting chest pain, which is new onset. PROCEDURE The patient was brought to the cardiac catheterization laboratory, prepped and draped in usual sterile fashion. 10 ccs of 1% lidocaine was used to locally anesthetize the right common femoral artery. A 4-Chinese sheath was successfully placed in the right common femoral artery. A 5-1/2 Chinese sheath was placed in the right common femoral vein. Right heart catheterization was performed first with the following findings: Pulmonary capillary wedge pressure 50/14-12. PA pressure 27/10-18. RV pressure 27/3-6. RA pressure 6/5-3. Everything on room air. FA sat 98%. PA sat 77%. RA sat was 76.2%. The cardiac output was 6.7 liters per minute. Cardiac index 3.1 liters per meter squared per minute. SVR 1192.8 dynes. The LV pressures 150/5-10. Ejection fraction is 30% with global hypokinesia. The right coronary artery is nondominant, no significant disease angiographically. The left main coronary artery is a large vessel. Reference vessel diameter of 7-8 mm with no significant disease angiographically. The LAD is transapical, has an ostial 30-40% stenosis. It has moderate disease in the proximal midsegment up to 40% angiographically. Left circumflex vessel is a dominant vessel, has an ostial proximal 20% stenosis, reference vessel diameter of 5-6 mm. First obtuse marginal vessel is a 1.5 mm vessel with no significant disease angiographically. Second obtuse marginal vessel is a large vessel, reference vessel diameter 4.5 mm. No significant disease angiographically. There is a posterolateral artery which has a trifurcation, small to medium-sized vessel, reference vessel diameter 2-5 mm in diameter, no significant disease angiographically and the left PDA has no significant disease angiographically. Note, the distal left main in the cranial view has a 40-50% stenosis. In the caudal views it appears to be at about 20%. CONCLUSION 1. Angiographically mild to moderate two-vessel and left main disease and left dominant system as detailed above. 2. Cardiomyopathy. EF 30%, global hypokinesis. 3. The patient is euvolemic by LV pressures and right heart catheterization pressures as detailed above. 4. I think the cardiac index is falsely elevated based on the left ventriculogram. 5. Recommend continued medical management of coronary artery disease and cardiomyopathy. Note, the patient has been given a liter of normal saline brie-procedurally for his history of chronic renal insufficiency. Given his low LVEDP of 10 or less, I think he will tolerate the liter bolus without any difficulties. 6. I have advised the patient to not drive for a week. He lives out of town and states he is going to drive to [place], I told him this would be high risk given the recent femoral artery and femoral vein stick, he understands. Obdulia Ram MD AWC/TLL /1:20 PM /10:37 AM
--- NOTE | 2017-10-23 23:14 | EKG ---
Date Performed: 10/21/2017 Time Performed: 18:32:24 PTAGE: 77 years EKG: ELECTRONIC ATRIAL PACEMAKER ELECTRONIC VENTRICULAR PACEMAKER ABNORMAL RHYTHM ECG PREVIOUS TRACING : 10/21/2017 12.34 DOCTOR: Colby Azul Interpretating Date/Time 10/23/2017 23:02:45
--- NOTE | 2017-10-23 23:14 | EKG ---
Date Performed: 10/21/2017 Time Performed: 21:55:20 PTAGE: 77 years EKG: ELECTRONIC ATRIAL PACEMAKER ELECTRONIC VENTRICULAR PACEMAKER ABNORMAL RHYTHM ECG PREVIOUS TRACING : 10/21/2017 18.32 DOCTOR: Colby Azul Interpretating Date/Time 10/23/2017 23:02:39
--- NOTE | 2017-10-23 23:15 | EKG ---
Date Performed: 10/21/2017 Time Performed: 12:34:03 PTAGE: 77 years EKG: ELECTRONIC VENTRICULAR PACEMAKER ABNORMAL RHYTHM ECG PREVIOUS TRACING : 10/21/2017 12.32 DOCTOR: Colby Azul Interpretating Date/Time 10/23/2017 23:04:58
== END 2017-10-22 18:05 | disposition left against medical advice (07) | DRG 287 ==
LOC: NEPC 12:25 → NEDA 15:30 → NEPGCP 16:34 → HCIS 10-22 13:10 → OBSVTOIN 10-22 14:11
PROVIDERS: ADMIT Internal Medicine; ATTEND Internal Medicine
PROC: 4A023N8 Measurement of Cardiac Sampling and Pressure, Bilateral, Percutaneous Approach (ICD-10-PCS; principal; 2017-10-22)
PROC: B2111ZZ Fluoroscopy of Multiple Coronary Arteries using Low Osmolar Contrast (ICD-10-PCS; 2017-10-22)
PROC: B2151ZZ Fluoroscopy of Left Heart using Low Osmolar Contrast (ICD-10-PCS; 2017-10-22)
DX: I49.3 Ventricular premature depolarization (principal); I42.9 Cardiomyopathy, unspecified; I50.9 Heart failure, unspecified; I25.110 Atherosclerotic heart disease of native coronary artery with unstable angina pectoris; G62.9 Polyneuropathy, unspecified; M54.9 Dorsalgia, unspecified; G89.29 Other chronic pain; N18.9 Chronic kidney disease, unspecified; R00.0 Tachycardia, unspecified; Z95.0 Presence of cardiac pacemaker; Z95.5 Presence of coronary angioplasty implant and graft
CPT/HCPCS: 71045; 80048; 82550; 82810; 83735; 83880; 84443; 84484; 85025; 85610; 85730; 93005; 93460; 99291; C1769; C1893; G0378; J1644; J2250; J3010; Q9967